=== PATIENT | male | born 2005 | race Caucasian/White ===

== ENCOUNTER → 2024-09-12 16:21 | Outpatient (REF) | payer OTHER, SELFPAY ==
[2024-09-20 02:47] LABS: HPV, High Risk Not Detected; HPV, High Risk Source Anal
== END ==
LOC: CLAB 16:21
PROVIDERS: ATTENDING PHYSICIAN Surgery
DX: Z72.52 High risk homosexual behavior (principal)
CPT/HCPCS: 87624; 88112

== ENCOUNTER → 2024-10-24 12:45 | Outpatient (REF) | payer OTHER, SELFPAY | LOC: CLAB 12:45 | PROVIDERS: ATTENDING PHYSICIAN Surgery | DX: Z72.52 High risk homosexual behavior (principal) | CPT/HCPCS: 87491; 87591 ==